=== PATIENT | male | born 1965 | race Two or more races ===

== ENCOUNTER 2024-09-13 07:41 | Day surgery (SDC) | payer BC, SELFPAY ==
[2024-09-13] VITALS (10 sets, daily range): BP systolic 115–145; BP diastolic 63–84; PULSE 60–88; RESP 12–20; TEMP 36.3–36.7; O2SAT 95–100
--- NOTE | 2024-09-13 07:55 | XR_ITS ---
Examination: CT abdomen and pelvis without contrast. Coronal 3-D reconstructions. Sagittal 2-D reconstructions. Date and time of exam:September 13, 2024 0913 hours INDICATIONS: Generalized abdominal pain today CTDI: vol (mGy): 7.46 DLP: (mGycm): 405 Technique: Axial images of the abdomen have been obtained, 3 mm slice thickness Intravenous contrast material has not been administered. Low dose protocols were performed. One or more of the following dose reduction techniques were used; automated exposure control, adjustment of the mA and/or KV according to patient size, use of iterative reconstruction technique. Findings: No focal liver or splenic lesions Tiny gallstones No pancreatic or adrenal mass Bilateral renal cysts including left parapelvic No hydronephrosis or ureteral calculi Fluid-filled tubular structure with inflammation medial and below the cecum, coronal images 58 through 45, axial images 147 through 167 consistent with inflamed appendix No pelvic abscess Fat-containing inguinal hernias IMPRESSION: Cholelithiasis Findings most consistent with acute appendicitis, no pelvic abscess
--- NOTE | 2024-09-13 07:56 | PD.EDRME ---
Rapid Medical Screening Exam RME Arrival date/time: 09/13/24 07:41 59-year-old male presents to the emergency department today for complaint of abdominal pain Chief Complaint: Abdominal Pain Vital signs: Vital Signs Temperature 97.3 F 09/13/24 07:50 Pulse Rate 67 09/13/24 07:50 Respiratory Rate 18 09/13/24 07:50 Blood Pressure 134/84 H 09/13/24 07:50 Pulse Oximetry (%) 100 09/13/24 07:50 Oxygen Delivery Method Room Air 09/13/24 07:50
[2024-09-13] MEDS: HYDROcodone/APAP 5/325 TABLET 1 TAB PO (08:01)
[2024-09-13] MEDS: FAMOTIDINE 20 MG TABLET 40 MG PO (08:01)
[2024-09-13 08:18] LABS: Collection Type, Urine Clean Catch
[2024-09-13 08:33] LABS: Bilirubin,Urine Negative (Negative); Blood,Urine Negative (Negative); Clarity,Urine Clear (Clear/Hazy); Color,Urine Yellow (Lt Yel-Yel); Culture Indicated,Urine Not Indicated; Glucose, Urine Negative (Negative); Ketones,Urine 2+ (Negative); Leukocyte Esterase,Urine Negative (Negative); Nitrite,Urine Negative (Negative); PH,Urine 6.5 (5.0-7.0); Protein,Urine 1+ (Neg - Trace); RBC,Urine 3 /hpf (0-3); Specific Gravity,Urine 1.038 (1.001-1.035); Squamous Epithelial Cell,Urine < 1 /hpf (0-5); Urobilinogen,Urine Negative mg/dL (0.0-1.0); WBC,Urine 1 /hpf (0-5)
[2024-09-13 08:39] LABS: Basophils % (Auto) 0 % (0-2.5); Eosinophils # (Auto) 0.1 Thou/mm3 (0.0-0.5); Eosinophils % (Auto) 1 % (0-10); Hematocrit 41.6 % (41.0-53.0); Hemoglobin 15.3 g/dL (13.5-16.0); Immature Granulocytes % (Auto) 0 % (0-0); Immature Granulocytes Auto 0.04 Thou/mm3 (0.00-0.00); Lymphocytes # (Auto) 1.5 Thou/mm3 (1.0-4.8); Lymphocytes % (Auto) 12 % (10-50); Mean Corpuscular HGB Conc 36.8 g/dl (31.0-37.0); Mean Corpuscular Hemoglobin 31.2 pg (25.0-35.0); Mean Corpuscular Volume 85 fL (80-100); Monocytes % (Auto) 7 % (0-12); Neutrophils # (Auto) 10.5 Thou/mm3 (1.8-7.7); Neutrophils % (Auto) 80 % (37-80); Nucleated Red Blood Cell % 0 /100 WBC (0); Platelet Count 173 Thou/mm3 (140-440); RDW Standard Deviation 41.5 fL (35.1-43.9); Red Blood Count 4.91 Miln/mm3 (4.50-5.90); White Blood Count 13.1 Thou/mm3 (3.8-10.6)
[2024-09-13 08:58] LABS: Alanine Aminotransferase 20 U/L (10-49); Albumin, Serum 4.5 gm/dL (3.4-4.8); Albumin/Globulin Ratio 1.6 (1.2-2.2); Alkaline Phosphatase 75 U/L (46-116); Anion Gap 11 (7-16); Aspartate Amino Transferase 22 U/L (0-34); BUN/Creatinine Ratio 12 Ratio (12-20); Bilirubin,Total 0.7 mg/dL (0.3-1.2); Blood Urea Nitrogen 11 mg/dL (9-23); Calcium 9.7 mg/dL (8.3-10.6); Calcium (Corrected) 9.7 mg/dL (8.5-10.1); Carbon Dioxide 22.9 mMol/L (20.0-31.0); Chloride 102 mMol/L (98-107); Creatinine (Component) 0.9 mg/dL (0.6-1.3); Globulin 2.8 gm/dL (2.3-3.5); Glucose 167 mg/dL (74-106); Lipase 34 U/L (12-53); Osmolality,Calculated 275 (275-295); Potassium 3.9 mMol/L (3.4-5.1); Sodium 136 mMol/L (136-145); Total Protein 7.3 gm/dL (5.7-8.2); Troponin I < 0.002 ng/mL (0.0-0.045); eGFR > 60 See Note
--- NOTE | 2024-09-13 09:21 | PC.NURSE ---
INFORMED PROVIDER ILDEFONSO OF PT'S UNRELIEVED PAIN. HE SAID TO ASK FOR A ROOM IN THE BACK. REGINA ASSIGNED PT TO ROOM 18. TEDDY HERNÁNDEZ TO TAKE PT TO ROOM 18.
--- NOTE | 2024-09-13 09:47 | EDNOTE_ITS ---
ED Abdominal Pain RME/HPI General Chief Complaint: Abdominal Pain Stated complaint: SEVERE ABD PAIN, 10/10 SINCE 11PM; N/V Time seen by provider: 09/13/24 09:32 Arrival date/time: 09/13/24 07:41 Limitations: no limitations RME / HPI RME / HPI narrative: 09/13/24 07:41 59-year-old male presents to the emergency department today for complaint of abdominal pain DR. DIGGS MAIN ED EVALUATION: 59 year old male presents to the Emergency Department accompanied by his with complaint of diffuse abdominal pain since last night 11 PM. He states he did not eat anything unusual; he mentions he always eats spicy foods but nothing out of the ordinary. No recent travel. Per , patient had similar symptoms x3 other times for the last 2 years ago, last time before today was a month ago. Last bowel movement was this morning, normal. Last oral intake was yesterday night at 7 PM, bread with milk. No nausea, vomiting, diarrhea, or constipation. No fevers or chills. PMHx: Hypertension Social Hx: No tobacco, alcohol, or substance use. Related Data Allergies Allergy/AdvReac Type Severity Reaction Status Date / Time celecoxib Allergy Intermediate PALPITATION Verified 09/13/24 07:45 S Review of Systems Review of Systems Systems Reviewed: All systems reviewed, normal except as documented Past Medical History Social History SMOKING STATUS: Never smoker ED Exam General Limitations: Present no limitations General appearance: Present alert, in no apparent distress and anxious Head Head exam: Present atraumatic, normocephalic and normal inspection Eye Eye exam: Present normal appearance, PERRL and EOMI ENT ENT exam: Present normal exam, normal oropharynx and mucous membranes moist Neck Neck exam: Present normal inspection, full ROM and trachea midline Chest Chest inspection: Present normal inspection and symmetric chest wall rise Respiratory Respiratory exam: Present normal lung sounds bilaterally Cardiovascular Cardiovascular exam: Present regular rate, normal rhythm and normal heart sounds Abdominal Exam Abdominal exam: Present tenderness (diffusely but more on the right lower quadrant with +/- rebound) and normal bowel sounds Extremities Exam Extremities exam: Present normal inspection and full ROM Back Exam Back exam: Present normal inspection and full ROM Neurological Exam Neurological exam: Present alert, oriented X3 and CN II-XII intact Psychiatric Psychiatric exam: Present normal affect and normal mood Skin Skin exam: Present warm, dry, intact and normal color Course Quality Measures none Orders Category Date Time Status Patient Condition Routine Admission 09/13/24 11:[address] in Surgical Day Care Routine Admission 09/13/24 11:32 Active COVID-19 Screening Questionnaire NOW Care 09/13/24 11:30 Active Air Quality Consultant STAT Care 09/13/24 09:40 Active Consent [Obtain Written Consent For:] .NOW Care 09/13/24 11:31 Active Continuous Pulse Oximetry STAT Care 09/13/24 09:40 Completed Decision to Admit X1 Care 09/13/24 11:30 Active Insert IV STAT Care 09/13/24 09:40 Active Intake and Output QSHIFT Care 09/13/24 11:45 Ordered NPO STAT Care 09/13/24 09:40 Active Notify provider NEEDED Care 09/13/24 11:[address] abdomen pelvis wo con Stat Exams 09/13/24 07:55 Completed CBC Stat Lab 09/13/24 08:28 Completed Comprehensive Metabolic Panel Stat Lab 09/13/24 08:28 Completed Lipase Stat Lab 09/13/24 08:28 Completed Magnesium Stat Lab 09/13/24 08:28 Completed Troponin I Stat Lab 09/13/24 08:28 Completed UA, C/S IF [Urinalysis, C/S if Indicated] Stat Lab 09/13/24 08:10 Completed Acetaminophen Tab [Tylenol Tab] Med 09/13/24 11:31 Active 650 mg PO Q6H PRN Cefoxitin [Mefoxin] 2 gm Med 09/13/24 11:31 Active SODIUM CHLORIDE 0.9% (Popper) [Ns 0.9% (P)] 50 ml IV X1 Famotidine [Pepcid] Med 09/13/24 07:55 Discontinued 40 mg PO X1 ONE HYDROcodone*/APAP 5/325 [Cana 5/325] Med 09/13/24 07:55 Discontinued 1 tab PO X1 ONE Morphine Inj Med 09/13/24 09:40 Discontinued 4 mg IVP X1 ONE Ondansetron Inj [Zofran Inj] Med 09/13/24 09:40 Discontinued 4 mg IVP Q1H PRN Ondansetron Inj [Zofran Inj] Med 09/13/24 11:31 Active 4 mg IVP Q6H PRN Sodium Chloride 0.9% 1000 ml [Ns] 1,000 ml Med 09/13/24 09:40 Discontinued IV 999 mls/hr Code Status Routine Oth 09/13/24 11:31 Ordered Vital Signs Vital signs: Vital Signs Temperature 97.3 F 09/13/24 07:50 Pulse Rate 67 09/13/24 07:50 Respiratory Rate 18 09/13/24 07:50 Blood Pressure 134/84 H 09/13/24 07:50 Pulse Oximetry (%) 100 09/13/24 07:50 Oxygen Delivery Method Room Air 09/13/24 07:50 Abdominal Pain MDM MDM Narrative MDM Narrative:: Yoli Alexander am scribing for and in the presence of Dr. Diggs. Patient data External records reviewed:: None (no previous visits) Clinical information provided by:: patient and spouse Social determinants that could affect healthcare access:: none Patient has the following chronic illnesses:: Hypertension. How is presenting disease/condition affected by chronic disease/condition?: no chronic disease Evaluation data The following diagnostics were reviewed and interpreted by me:: lab results and radiology exam(s) Lab and/or radiology exams considered but not ordered:: none Interpretation Summary: Procedure(s): CT abdomen pelvis wo con Accession Number(s): [id number] cc: Kenji (SANDEEP),Andre HOPKINS; Jesse Pozo MD~ Examination: CT abdomen and pelvis without contrast. Coronal 3-D reconstructions. Sagittal 2-D reconstructions. Date and time of exam:September 13, 2024 0913 hours INDICATIONS: Generalized abdominal pain today CTDI: vol (mGy): 7.46 DLP: (mGycm): 405 Technique: Axial images of the abdomen have been obtained, 3 mm slice thickness Intravenous contrast material has not been administered. Low dose protocols were performed. One or more of the following dose reduction techniques were used; automated exposure control, adjustment of the mA and/or KV according to patient size, use of iterative reconstruction technique. Findings: No focal liver or splenic lesions Tiny gallstones No pancreatic or adrenal mass Bilateral renal cysts including left parapelvic No hydronephrosis or ureteral calculi Fluid-filled tubular structure with inflammation medial and below the cecum, coronal images 58 through 45, axial images 147 through 167 consistent with inflamed appendix No pelvic abscess Fat-containing inguinal hernias IMPRESSION: Cholelithiasis Findings most consistent with acute appendicitis, no pelvic abscess Dictated By: Jesse Pozo MD Medications / Prescriptions Medications or Prescriptions considered but not ordered:: none Medication administrations:: Medication Administration History Acetaminophen (Acetaminophen 325 Mg Tablet) 650 mg PO Q6H PRN PRN Reason: Fever >101.5 Stop: 10/13/24 11:30 Cefoxitin Sodium 2 gm/ Sodium (Chloride) 50 mls @ 100 mls/hr IV X1 ONE Stop: 09/13/24 12:00 Ondansetron HCl (Ondansetron Inj 2 Mg/Ml Inj 2 Ml) 4 mg IVP Q6H PRN PRN Reason: NAUSEA OR VOMITING Stop: 10/13/24 11:30 Discontinued Medications Hydrocodone Bitart/Acetaminophen (Hydrocodone/Apap 5/325 Tablet) 1 tab PO X1 ONE Stop: 09/13/24 07:56 Last Admin: 09/13/24 08:01 Dose: 1 tab Documented By: ALEXX Famotidine (Famotidine 20 Mg Tablet) 40 mg PO X1 ONE Stop: 09/13/24 07:56 Last Admin: 09/13/24 08:01 Dose: 40 mg Documented By: ALEXX Sodium Chloride (Ns) 1,000 mls @ 999 mls/hr IV .Q1H1M ONE Stop: 09/13/24 10:40 Last Infusion: 09/13/24 11:00 Dose: Infused Documented By: Admin: 09/13/24 09:59 Dose: 999 mls/hr Documented By: SUSHILA Morphine Sulfate (Morphine Sulf Inj 10 Mg/Ml Vial) 4 mg IVP X1 ONE Stop: 09/13/24 11:40 Last Admin: 09/13/24 09:59 Dose: 4 mg Documented By: SUSHILA Ondansetron HCl (Ondansetron Inj 2 Mg/Ml Inj 2 Ml) 4 mg IVP Q1H PRN PRN Reason: PERSISTENT NAUSEA OR VOMITING Last Admin: 09/13/24 09:59 Dose: 4 mg Documented By: SUSHILA see above Consultations Consultation(s) initiated? (list below): Yes Consultation #1 (Physician, Specialty, Details): Discussed test HPI, PMHx, lab, radiology results and/or management with Dr. Wallace. Will consult an admission to the hospitalist. Time: 11:30 Consultation #2 (Physician, Specialty, Details): Discussed test HPI, PMHx, lab, radiology results and/or management with resident working with the hospitalist. Will admit for further evaluation and management. Accepts patient for admission. Time: 11:43 Diagnosis Differential diagnosis abdominal pain: abdominal pain, acute appendicitis, constipation, pancreatitis and small bowel obstruction Most likely diagnosis given after review of the tests above:: Acute appendicitis Admission Indicated Admission indicated?: indicated Admission Request Was there a request for admission?: Yes Admission Attestation Admission request attestation: Discussed case with [] from Hospitalist service regarding admission. Discussed patients ED course, exam findings, labs, and radiology results. The Hospitalist [agrees,declines] to accept the patient for admission. Disposition Plan Disposition Plan: Admit Discharge Plan Plan Patient Disposition: Admit Acute Care w/in Hospital Prescriptions/Referrals Referrals: No Primary/Family,Physician [Primary Care Provider] - In 1 week Problem List Clinical Impression: Acute appendicitis Patient/Caregiver Discharge Instructions Print Language: Montenegrin Stand Alone Forms: Debra Award Info., Patient Portal Info Letter
[2024-09-13] MEDS: SODIUM CHLORIDE 0.9% 1000 ML 1,000 ML 999 ML IV (09:59)
[2024-09-13] MEDS: MORPHINE SULF INJ 10 MG/ML VIAL 4 MG IVP (09:59)
[2024-09-13] MEDS: ONDANSETRON INJ 2 MG/ML INJ 2 ML 4 MG IVP (09:59)
[2024-09-13 10:03] LABS: Magnesium 1.9 mg/dL (1.6-2.6)
--- NOTE | 2024-09-13 12:17 | PD.SURHP ---
HPI Date of Admission 09/13/2024 Chief Complaint Chief Complaint: Right lower quadrant abdominal pain with nausea and vomiting HPI 59-year-old male without significant past medical history presented to the emergency department with acute onset of abdominal pain. His pain started last night around periumbilical region. The pain was initially intermittent, then it became persistent and progressively worse. His pain is now localized over right lower quadrant. He has had nausea and vomiting, but denies fever, chills, diarrhea, constipation or dysuria. He denies recent history of trauma or travel. Review of Systems Constitutional Constitutional: Denies chills and Denies fever(s) Cardiovascular Cardiovascular: Denies chest pain Respiratory Respiratory: Denies cough Gastrointestinal Gastrointestinal: Reports abdominal pain, Reports nausea and Reports vomiting Genitourinary Genitourinary: Reports difficulty urinating Hematologic/Lymphatic Hematologic/Lymphatic: Denies easy bleeding and Denies easy bruising Past Medical History Surgical History OTHER SURGICAL HX: Hemorrhoidectomy, left shoulder surgery, left knee surgery Social History SMOKING STATUS: Never smoker SUBSTANCE USE: does not use ALCOHOL: Former (Stopped 30 years ago) Meds Home Medications and Allergies Allergies Allergy/AdvReac Type Severity Reaction Status Date / Time celecoxib Allergy Intermediate PALPITATION Verified 09/13/24 07:45 S Exam Vital Signs Temp Pulse Resp BP Pulse Ox O2 Del Method 97.8 F 77 19 115/76 97 Room Air 09/13/24 12:15 09/13/24 12:15 09/13/24 12:15 09/13/24 12:15 09/13/24 12:15 09/13/24 12:15 Constitutional Constitutional: no acute distress Routine Respiratory Exam Respiratory: Present CTA bilaterally Routine Cardiovascular Exam Cardiovascular: Present RRR Routine Abdominal Exam Abdominal: Present soft, normoactive bowel sounds and tenderness (Right lower quadrant tenderness to palpation with guarding, no rebound tenderness or peritonitis at this time); Absent distended Results Results: Laboratory Laboratory results: results reviewed Results: Imaging CT scan - abdomen: report reviewed and image reviewed CT scan - pelvis: report reviewed and image reviewed Assessment & Plan Problem List (1) Acute appendicitis: Qualifiers: Acute appendicitis type: unspecified acute appendicitis type Qualified Code(s): K35.80 - Unspecified acute appendicitis Status: Acute Plan Will keep patient n.p.o. with IV fluids and IV antibiotics and plan for laparoscopic possible open appendectomy. Risks include but not limited to infection, bleeding, injury to bowel, bladder, surround neurovascular structures, abdominal sepsis and or abdominal abscess, need for further procedure and or operation discussed with the patient and his . Benefits and alternatives explained to them, all their questions answered, they agreed and consented to proceed with the operation. Quality Measures Quality Measures none
--- NOTE | 2024-09-13 12:27 | PC.NURSE ---
Patient came in to ED for abdominal pain that started yesterday. Patient states he has a history of recent appendicitis but was in [place] when this occurred and was given antibiotics. Patient alert and oriented X4. Vitals are stable. Patient was seen by Dr. Wallace at bedside. Written consent was obtained for lap appendectomy. Patient in agreement with plan. Report called to KYLE Griffin in surgery. No further questions.
[2024-09-13] MEDS: CEFOXITIN 2 GM in SODIUM CHLORIDE 0.9% (Popper) 50 ML IV (12:34)
--- NOTE | 2024-09-13 14:35 | ESOP_ITS ---
Date of Procedure 09/13/24 Pre Op Diagnosis Acute appendicitis Post Op Diagnosis Acute appendicitis Procedure Laparoscopic appendectomy Findings Inflamed, dilated and hyperemic appendix without perforation Procedure Description Patient was brought into the operating room in supine position. After administration of general endotracheal anesthesia, abdomen was prepped and draped in standard surgical manner. A Veress needle was inserted through the umbilicus and pneumoperitoneum was obtained up to 15 mmHg. The Veress needle was removed and a 5 mm umbilical incision was made. A 5 mm trocar was placed and laparoscopic camera was inserted. Under direct visualization a laparoscopic camera a 5 mm trocar placed in suprapubic region and a 10 mm trocar placed in left lower quadrant. The abdomen was inspected, the cecum was identified and followed until the appendix was identified. The appendix was noted to be inflamed, dilated and hyperemic without perforation. A window was created between the appendix and mesoappendix and the appendix was divided near the appendix and cecal junction with blue Endo HELENA stapling device. The mes oappendix was divided with latif Endo HELENA stapling device. The appendix was placed inside an Endo Catch and removed from the abdomen utilizing left lower quadrant trocar site. Abdomen and pelvis copiously and thoroughly washed and irrigated, all the fluids were suctioned and the suctioned fluid returned clear. Hemostasis was adequate and satisfactory, staple lines were intact without bleeding or any leakage. Left lower quadrant trocar sites fascial defect was closed with 0 Vicryl using Endo closure device. Instruments and trocars removed, pneumoperitoneum was evacuated and the incisions closed with 4-0 Monocryl subcuticular fashion. Instruments, needles and sponge counts were reported to be correct ??2. Patient tolerated the procedure well, was extubated, breathing spontaneously and without difficulty and was transferred to postanesthesia care in stable condition. Anesthesia GETA and local Pathology / specimen Other (Appendix) Estimated Blood Loss 10 Condition Stable Disposition PACU Surgeon Amadeo Wallace MD Surgical Staff Operation Date: 09/13/24 16:00 <No data on this case meets the specified criteria>
--- NOTE | 2024-09-13 15:11 | SUR.PHASEI ---
1511: Pt. AAOx4, vitals stable, breathing unlabored, complaint of pain 10/10, no complaint of nausea, x4 dermabond sites to ABD CDI, no active bleed noted, report received from MD [place] and Keisha WRIGHT.
[2024-09-13] MEDS: fentaNYL CIT INJ 50 mCg/ML AMP 2ML IVP ×2 (15:20→15:53)
--- NOTE | 2024-09-13 16:15 | SUR.PHASEII ---
1615: Pt. AAOx4, vitals stable, breathing unlabored, no complaint of pain or nausea, x4 dressing to ABD CDI, no active bleed noted, pt. tolerated sips of water well, pt. ambulated to wheelchair with steady gait and no assist, no complications. Gave discharge instructions to the pt. and his ride using camp boss, both verbalized understanding and had no further questions. Pt. left with all personal belongings.
== END 2024-09-13 16:15 | disposition home or self-care (01) ==
LOC: SERX 11:43 → S2EX 12:01
PROVIDERS: Nurse Practitioner Primary Care; Emergency Provider Family Medicine; Referring Provider Surgery; Visit Provider Surgery
PROC: 0DTJ4ZZ Resection of Appendix, Percutaneous Endoscopic Approach (ICD-10-PCS; CPT 44970; principal; 2024-09-13 15:45)
DX: K35.30 Acute appendicitis with localized peritonitis, without perforation or gangrene (principal); I10 Essential (primary) hypertension
CPT/HCPCS: 44970; 36415; 74176; 80053; 81001; 83690; 83735; 84484; 85025; 96361; 96374; 96375; 99285; A4217; A4649; J0694; J1100; J2270; J2405; J2704; J3010; J3490; J7030; J7050; A9270